=== PATIENT | male | born 1965 | race Two or more races ===

== ENCOUNTER 2024-06-05 05:38 | Emergency (ER) | payer OTHER ==
[~2024-06-05] VITALS: Ht 175.3 cm; Wt 104.3 kg
[2024-06-05] MEDS ORDERED: COZAAR50 MG (05:48)
[2024-06-05] MEDS ORDERED: METFORMIN HCL1000 M2 (05:48)
[2024-06-05] MEDS ORDERED: LIPITOR40 MG (05:49)
[2024-06-05] MEDS ORDERED: PROMETHAZINE HCL 50 MG/ML AMPUL IM STA (06:52)
[2024-06-05] MEDS ORDERED: TAMSULOSIN HCL 0.4 MG CAP PO STA (06:54)
[2024-06-05] MEDS ORDERED: KETOROLAC TROMETHAMINE 30 MG VIAL IV STA (06:54)
[2024-06-05] MEDS ORDERED: SODIUM CHLORIDE 0.45 % 1,000 ML IV ONE (07:00)
[2024-06-05] MEDS ORDERED: KETOROLAC TROMETHAMINE 30 MG VIAL ONE (07:22)
[2024-06-05] MEDS ORDERED: PROMETHAZINE HCL 25 MG/ML AMPUL ONE (07:22)
[2024-06-05] MEDS ORDERED: TAMSULOSIN HCL 0.4 MG CAP PO ONE (07:22)
[2024-06-05 07:51] LABS: HEMATOCRIT 39.8 % (39.0-48.0); HEMOGLOBIN 13.6 g/dL (13-16.00); MEAN CELL VOLUME 91.3 fL (80.0-100.00); MEAN CORPUSCULAR HEMOGLOBIN 31.1 pg (27.00-32.0); MEAN CORPUSCULAR HGB CONC 34.1 g/dl (32.0-36.0); PLATELET COUNT 161 K/uL (150-450); RED BLOOD COUNT 4.36 M/uL (4.00-6.00); RED CELL DISTRIBUTION WIDTH 12.9 % (11.5-14.5)
[2024-06-05 08:23] LABS: CALCIUM 9.3 mg/dL (8.5-10.1); CREATININE SERUM 0.92 mg/dL (0.70-1.30); GFR 83.64; POTASSIUM 4.65 mEq/L (3.5-5.1)
[2024-06-05 10:00] LABS: PH,URINE 5.5 (5.0-8.0); URINE APPEARANCE Clear; URINE BILIRRUBIN Negative (NEGATIVE); URINE BLOOD Moderate; URINE COLOR Yellow; URINE KETONE Negative (NEGATIVE); URINE LEUKOCYTE Negative; URINE NITRATE Negative; URINE PROTEIN Negative (NEGATIVE); URINE UROBILINOGEN 0.2 E.U./dl
[2024-06-05 10:04] LABS: URINE BACTERIA 9.7 uL (0.0-1933); URINE EPITHELIAL CELLS 7.5 uL (0.0-38.8); URINE RBC 12.8 uL (0.0-20.8); URINE WBC 17.5 uL (0.0-23.2)
[2024-06-05 10:10] LABS: URINE GLUCOSE 100 MG/DL (NEGATIVE)
[2024-06-05] MEDS ORDERED: TAMS0.4C PO (10:28)
[2024-06-05] MEDS ORDERED: CEPHALEXIN500 M1 PO (10:28)
[2024-06-05] MEDS ORDERED: KETO10TA2 PO (10:28)
== END 2024-06-05 10:39 | disposition home or self-care (01) ==
LOC: ER 05:40
PROVIDERS: General Practice
DX: N20.1 Calculus of ureter (principal); R10.9 Unspecified abdominal pain; I10 Essential (primary) hypertension; E11.9 Type 2 diabetes mellitus without complications; Z79.84 Long term (current) use of oral hypoglycemic drugs; Z91.02 Food additives allergy status